=== PATIENT | male | born 1940 | race Two or more races ===

== ENCOUNTER 2024-04-16 16:49 | Inpatient (IN) | payer MEDICARE, MEDICAID, SELFPAY ==
[2024-04-16 16:50] VITALS: BMI 31.3
[2024-04-16 17:04] VITALS: BP 170/71; BP 173/68; PULSE 73; RESP 21; TEMP 37.7; O2SAT 93
[2024-04-16 17:06] VITALS: BMI 29.1
--- NOTE | 2024-04-16 17:12 | PD.EDRME ---
Rapid Medical Screening Exam E Arrival date/time: 04/16/24 16:49 83-year-old male with past medical history of hypertension, hyperlipidemia, BPH, and UTI presents emergency department complaining of painful urination that started this morning. Chief Complaint: Urogenital-Male Time Seen by Provider: 04/16/24 17:03 Vital signs: Vital Signs Temperature 99.8 F 04/16/24 17:04 Pulse Rate 73 04/16/24 17:04 Respiratory Rate 21 H 04/16/24 17:04 Blood Pressure 173/68 H 04/16/24 17:04 Pulse Oximetry (%) 93 L 04/16/24 17:04 Oxygen Delivery Method Room Air 04/16/24 17:04
--- NOTE | 2024-04-16 17:22 | XR_ITS ---
Examination: PA lateral chest 2 views TECHNIQUE: Upright PA lateral chest 2 views Exam date and time: April 16, 2024 1726 hours Comparison July 24, 2017 INDICATIONS: Onset SOB today FINDINGS: Opacity left base consistent with pneumonia or scar formation, obscuring detail left hemidiaphragm Right lung clear Normal heart size The osseous structures are intact IMPRESSION: Mild pneumonia versus scar formation left base, clinical correlation advised
[2024-04-16 17:32] LABS: Collection Type, Urine Clean Catch; Squamous Epithelial Cell,Urine 0 /hpf (0-5)
[2024-04-16 17:39] LABS: Basophils % (Auto) 0 % (0-2.5); Eosinophils % (Auto) 0 % (0-10); Hemoglobin 12.3 g/dL (13.5-16.0); Immature Granulocytes % (Auto) 1 % (0-0); Immature Granulocytes Auto 0.09 Thou/mm3 (0.00-0.00); Lymphocytes # (Auto) 0.7 Thou/mm3 (1.0-4.8); Lymphocytes % (Auto) 5 % (10-50); Mean Corpuscular HGB Conc 33.2 g/dl (31.0-37.0); Mean Corpuscular Hemoglobin 30.7 pg (25.0-35.0); Mean Corpuscular Volume 92 fL (80-100); Monocytes % (Auto) 8 % (0-12); Neutrophils # (Auto) 11.7 Thou/mm3 (1.8-7.7); Neutrophils % (Auto) 87 % (37-80); Nucleated Red Blood Cell % 0 /100 WBC (0); Platelet Count 203 Thou/mm3 (140-440); Red Blood Count 4.01 Miln/mm3 (4.50-5.90); White Blood Count 13.5 Thou/mm3 (3.8-10.6)
[2024-04-16 17:45] LABS: Bacteria,Urine 4+; Bilirubin,Urine Negative (Negative); Blood,Urine 3+ (Negative); Glucose, Urine Negative (Negative); Ketones,Urine Negative (Negative); Leukocyte Esterase,Urine Positive (Negative); Nitrite,Urine Positive (Negative); Protein,Urine 3+ (Neg - Trace); RBC,Urine 108 /hpf (0-3); Specific Gravity,Urine 1.018 (1.001-1.035); Urobilinogen,Urine Negative mg/dL (0.0-1.0); WBC,Urine 5771 /hpf (0-5)
[2024-04-16 17:46] LABS: Clarity,Urine Turbid (Clear/Hazy); Color,Urine Yellow (Lt Yel-Yel); Culture Indicated,Urine Yes
[2024-04-16 18:06] LABS: Alanine Aminotransferase 13 U/L (10-49); Albumin, Serum 4.2 gm/dL (3.4-4.8); Albumin/Globulin Ratio 1.6 (1.2-2.2); Alkaline Phosphatase 62 U/L (46-116); Anion Gap 6 (7-16); Aspartate Amino Transferase < 8 U/L (0-34); BUN/Creatinine Ratio 20 Ratio (12-20); Bilirubin,Total 0.7 mg/dL (0.3-1.2); Blood Urea Nitrogen 28 mg/dL (9-23); Calcium 9.2 mg/dL (8.3-10.6); Calcium (Corrected) 9.2 mg/dL (8.5-10.1); Carbon Dioxide 26.1 mMol/L (20.0-31.0); Chloride 104 mMol/L (98-107); Creatinine (Component) 1.4 mg/dL (0.6-1.3); Estimated Creatinine Clearance 40.1 mL/min (>60); Globulin 2.6 gm/dL (2.3-3.5); Glucose 110 mg/dL (74-106); Lipase 32 U/L (12-53); Osmolality,Calculated 278 (275-295); Potassium 3.8 mMol/L (3.4-5.1); Sodium 136 mMol/L (136-145); Total Protein 6.8 gm/dL (5.7-8.2); eGFR 49 See Note
[2024-04-16 19:23] VITALS: BP 192/70; BP 194/64; PULSE 66; RESP 19; TEMP 37.8; O2SAT 97
[2024-04-16 21:00] VITALS: BP 194/84; PULSE 62; RESP 18; TEMP 37; O2SAT 95
[2024-04-16] MEDS: cefTRIAXone/D5w 1gm IV premix 50 ML IV (21:00)
--- NOTE | 2024-04-16 21:06 | EKG_ITS ---
[facility] Test Date: 2024-04-16 Pat Name: MARCUS KRUEGER Department: Room: - Gender: Male Processing Engineer: : [id number] Requested By: Ernesto Medina Order Number: [id number] Reading MD: Ernesto Medina Measurements Intervals [place] Rate: 66 P: 60 ID: [id number] QRS: 39 QRSD: 114 T: 43 QT: 400 QTc: 420 Interpretive Statements SINUS RHYTHM WITH SINUS ARRHYTHMIA INCOMPLETE RIGHT BUNDLE BRANCH BLOCK [90+ ms QRS DURATION, TERMINAL R IN V1/V2, 40+ ms S IN I/aVL/V4/V5/V6] Compared to ECG 10/09/2021 08:28:21 Incomplete right bundle-branch block now present Sinus bradycardia no longer present First degree AV block no longer present Intraventricular conduction delay no longer present /store/S0/[id number]/ecg/[id number].pdf
--- NOTE | 2024-04-16 21:08 | EDNOTE_ITS ---
ED Male Genitalurinary RME/HPI General Chief complaint: Urogenital-Male Stated complaint: THINKS HAS UTI, HAVING CHILLS TODAY Time Seen by Provider: 04/16/24 17:03 Arrival date/time: 04/16/24 16:49 RME / HPI RME / HPI Narrative: 04/16/24 16:49 83-year-old male with past medical history of hypertension, hyperlipidemia, BPH, and UTI presents emergency department complaining of painful urination that started this morning. DR. MEDINA MAIN ED EVALUATION: 83 year old male presents to the Emergency Department accompanied by his son with complaint of dysuria onset 12 PM today. Pain is described as burning and r ated moderate in severity. Associated symptoms include a subjective fever and chills since 3 PM today. Per son, patient had similar symptoms x2 other times and was hospitalized for an UTI at [facility]. Patient denies any of the following: sweating, hematuria, abdominal pain, nausea, vomiting, diarrhea, cough, shortness of breath, chest pain, headache, dizziness, or any other symptoms at this time. PMHx: X2 UTI's in past, hospitalized. Hypertension on medications, complaint. Bilateral shoulders' surgeries and knee surgery. Denies diabetes history. Social Hx: No tobacco, alcohol, or substance use. PCP: [facility] Related Data Home Medications ?Medication ?Instructions ?Recorded ?Confirmed finasteride 1 mg tablet (Propecia) 5 mg PO QDAY #0 tabs 07/08/16 10/09/21 hydrochlorothiazide 25 mg tablet 25 mg PO BID #0 tabs 07/08/16 10/12/21 tamsulosin 0.4 mg capsule (Flomax) 0.4 mg PO QDAY ##0 07/08/16 10/09/21 losartan 100 mg tablet 100 mg PO QDAY 09/22/20 10/12/21 metoprolol tartrate 50 mg tablet 25 mg PO QDAY 09/22/20 10/12/21 amlodipine 10 mg tablet 10 mg PO QDAY 10/02/21 10/12/21 gabapentin 100 mg capsule 100 mg PO BID 10/02/21 10/09/21 bimatoprost 0.01 % eye drops 1 drp ophthalmic (eye) QDAY 10/09/21 10/09/21 (Lois) Previous Rx's ?Medication ?Instructions ?Recorded ciprofloxacin HCl 500 mg tablet 500 mg PO BID #14 tabs 10/12/21 (Cipro) hydrocodone 5 mg-acetaminophen 325 1 tab PO Q6H PRN pain #20 tabs 10/12/21 mg tablet Allergies Allergy/AdvReac Type Severity Reaction Status Date / Time No Known Allergies Allergy Verified 04/16/24 16:52 Review of Systems Review of Systems Systems Reviewed: All systems reviewed, normal except as documented Narrative Review of Systems: GEN: + subjective fever, + chills, no weight loss EYES: No discharge, no visual changes, no pain HEENT: No ear pain, no congestion, no sore throat PULM: No shortness of breath, no cough, no congestion CV: No chest pain, no dyspnea on exertion, no palpitations GI: No nausea, no vomiting, no diarrhea, no pain, no constipation : + dysuria MUSC/SKEL: No joint pain, no back pain SKIN: No rash PSYCH: No hallucinations, no depression HEME/LYMPH: No easy bleeding or bruising tendencies NEURO: No weakness, no headache Past Medical History Social History SMOKING STATUS: Never smoker SUBSTANCE USE: does not use ALCOHOL: Never Past Medical History Comments PMH COMMENT: X2 UTI's in past, hospitalized. Hypertension on medications, complaint. Bilateral shoulders' surgeries and knee surgery. Denies diabetes history. ED Exam Narrative Physical exam: GEN. APPEARANCE: Patient is alert awake oriented x3 under no acute distress, laying down comfortably at 30-45?; does not look ill/ toxic. Patient has good eye contact. Patient is cooperative. VITALS: All vitals were reviewed and the pulse ox is 97% on room air, which is normal according to my interpretation. HEENT: Normocephalic, atraumatic and nontender. Pupils are equal and reactive to light and accommodation. Oral mucosa are moist. NECK: Supple, nontender, no meningismus, no JVD. CHEST: Nontender on palpation, no deformity and no crepitus. CARDIOVASCULAR: Heart regular rhythm no murmur or gallop rub or extra beats; not tachycardic. LUNGS: Clear to auscultation bilaterally with symmetrical chest rise. No laboring tachypnea or wheezing. No intercostal subcostal retraction. No rales and no rhonchi. ABDOMEN: Soft, flat, with suprapubic and right lower tenderness on palpation, with guarding but no rebound tenderness. No McBurney tenderness. No left-sided tenderness. There are no abnormal masses palpated. No pulsatile masses or bruits. Active and normal bowel sounds. GENITALIA: Not examined. RECTAL EXAM: Not done. EXTREMITIES: Nontender. No edema. No cyanosis. Patient is able to move all 4 extremities well. SKIN: Warm and dry, no rashes noted. MUSCULOSKELETAL: No lumbar or midline bony tenderness. There is no CVA tenderness. No paraspinal muscle spasm or tenderness. NEURO: Cranial nerves II through XII grossly intact. There is no focalization. GCS is 15. PSYCHIATRIC: Patient is in normal mood and affect, cooperative. Course Course Course Narrative: 2100: Sepsis alert initiated. Orders made at this time are congruent with ED Adult Sepsis Order List. Re-evaluation is to be completed. 2099: Fluids started. 2134: Sepsis reassessment performed consisting of lab review, vitals, physical exam including auscultation of heart, lungs, and visual evaluation of capillary refills, mucosal membranes and extremities. Quality Measures Current suspected stage: sepsis Possible source: genitourinary Blood cultures ordered: yes Antibiotic ordered: Yes Pertinent labs: 04/16/24 21:20 Lactic Acid 0.8 mMol/L (0.4-2.0) Procalcitonin 0.13 ng/ml (0.0-0.49) sepsis and none Orders Category Date Time Status COVID-19 Screening Questionnaire NOW Care 04/16/24 22:45 Active Decision to Admit X1 Care 04/16/24 22:45 Active EKG (ED ONLY) *Do not use* NOW Care 04/16/24 21:06 Completed Insert IV NOW Care 04/16/24 20:58 Active EKG (ED Only) Stat Exams 04/16/24 21:06 Draft XR chest 2V Stat Exams 04/16/24 17:22 Completed B-Type Natriuretic Peptide Stat Lab 04/16/24 21:20 Completed Blood Culture (Lab) Stat Lab 04/16/24 21:25 Received CBC Stat Lab 04/16/24 17:31 Completed CMP [Comprehensive Metabolic Panel] Stat Lab 04/16/24 17:31 Completed Lactate (Lactic Acid) Stat Lab 04/16/24 21:20 Completed Lipase Stat Lab 04/16/24 17:31 Completed Procalcitonin Stat Lab 04/16/24 21:20 Completed Troponin I Stat Lab 04/16/24 21:20 Completed Urinalysis, C/S if Indicated Stat Lab 04/16/24 17:20 Completed Urine Culture Stat Lab 04/16/24 17:20 Received Piper/Tazo 3.375 gm [Zosyn] Med 04/16/24 21:17 Discontinued 3.375 gm in 50 ml IV X1 Sodium Chloride 0.9% 1000 ml [Ns] 1,000 ml Med 04/16/24 21:09 Discontinued IV 999 mls/hr cefTRIAXone/D5w 1gm IV premix [Rocephin/D5w 1gm IV Med 04/16/24 19:03 Discontinued premix] 50 ml IV X1 cloNIDine HCL [Catapres] Med 04/16/24 22:23 Discontinued 0.2 mg PO X1 ONE Vital Signs Vital signs: Vital Signs Temperature 99.8 F 04/16/24 17:04 Pulse Rate 73 04/16/24 17:04 Respiratory Rate 21 H 04/16/24 17:04 Blood Pressure 173/68 H 04/16/24 17:04 Pulse Oximetry (%) 93 L 04/16/24 17:04 Oxygen Delivery Method Room Air 04/16/24 17:04 Procedures -ED EKG Interpretation #1: Date of EK04/16/24 Rate: 66 Interpretation: Interpreted by me EKG Impression: Normal sinus rhythm, No ectopy, Normal intervals and Normal axis Additional EKG comment: Incomplete right bundle branch block. Urogenital - Male MDM Narrative MDM Narrative:: I, Danielle Mesa, am scribing for and in the presence of Dr. Medina. I picked up discharge at 9 PM and I called sepsis protocol patient and his initial vital signs which showed a temperature of 100.1 orally, respiratory rate of 21 and also a blood pressure of 192/70. Patient states that today at around 12 noon he started having hurting and burning on urination and also felt fever chills since 3 PM today. He was not sweating. He was urinating frequently and hurting and burning. He denies abdominal pain per se and no nausea vomiting or diarrhea. He denies any chest pain shortness of breath or coughing and he denies any headache or dizziness. He denies any leg swelling or any fall or injuries. He had a similar episode in April 2023 when he went to [facility] and he was admitted there for UTI. He denies any abdominal surgeries but he has had both shoulders and the right knee operated on. He denies diabetes but he does have hypertension. Looking at his old records, he was here on 11/07/2023 when his white count was 3.8 with a normal differential; today, his white count is 13.5 with 87 segs 0 bands and 5 lymphs H&H of 12 and 37. His BUN and creatinine are elevated at 28 and 1.4 but that is at his baseline. His urinalysis shows positive nitrates and 5700 WBCs and 4+ bacteria. The triage PA had given him ceftriaxone which does not cover very well for Pseudomonas. Therefore I gave him also Zosyn 3.375 g IV. I ordered lactic acid and procalcitonin and blood cultures. If his lactic acid and procalcitonin are negative, I will discharge him home; otherwise, I will admit him to the hospital. At 10:22 PM, his blood pressure is still high at 203/77 therefore I ordered clonidine 0.2 mg p.o. His lactic acid and procalcitonin came back negative. At 10:45 PM, I discussed this case with Dr. Mckinney, PGY 2, who will come and admit him to the hospital. Provider Notation: Although this document has been carefully reviewed, there may still be some phonetic and other typographical errors. These error are purely grammatical due to imperfections in the software program and should not be construed in any way to compromise the substance of the patient's medical care during this visit. Patient data External records reviewed:: [facility] previous records (Reviewed procedure note by Dr. Vera, dated 10/12/21.) Clinical information provided by:: patient and family (son) Social determinants that could affect healthcare access:: none Patient has the following chronic illnesses:: X2 UTI's in past, hospitalized. Hypertension on medications, complaint. Bilateral shoulders' surgeries and knee surgery. Denies diabetes history. How is presenting disease/condition affected by chronic disease/condition?: exacerbated by Evaluation data The following diagnostics were reviewed and interpreted by me:: lab results, radiology exam(s) and EKG tracing(s) Lab and/or radiology exams considered but not ordered:: none Interpretation Summary: See above under MDM narrative. RADIOLOGY: Procedure(s): XR chest 2V Accession Number(s): [id number] cc: David Castillo MD; Harmony Miller (PIANO TEACHER),Ayan LAMAR~ Examination: PA lateral chest 2 views TECHNIQUE: Upright PA lateral chest 2 views Exam date and time: April 16, 2024 1726 hours Comparison July 24, 2017 INDICATIONS: Onset SOB today FINDINGS: Opacity left base consistent with pneumonia or scar formation, obscuring detail left hemidiaphragm Right lung clear Normal heart size The osseous structures are intact IMPRESSION: Mild pneumonia versus scar formation left base, clinical correlation advised Dictated By: David Castillo MD Medications / Prescriptions Medications or Prescriptions considered but not ordered:: none Medication administrations:: Medication Administration History Discontinued Medications Clonidine (Clonidine Hcl 0.1 Mg Tablet) 0.2 mg PO X1 ONE Stop: 04/16/24 22:24 Last Admin: 04/16/24 22:31 Dose: 0.2 mg Documented By: LANE Ceftriaxone Sodium/Dextrose (Rocephin/D5w 1gm Iv Premix) 50 mls @ 100 mls/hr IV X1 ONE Stop: 04/16/24 19:32 Last Infusion: 04/16/24 21:33 Dose: Infused Documented By: Admin: 04/16/24 21:00 Dose: 100 mls/hr Documented By: BRENDAN Sodium Chloride (Ns) 1,000 mls @ 999 mls/hr IV .Q1H1M ONE Stop: 04/16/24 22:09 Last Infusion: 04/16/24 22:28 Dose: Infused Documented By: Admin: 04/16/24 21:26 Dose: 999 mls/hr Documented By: BRENDAN Piperacillin/Tazobactam/Dextrose (Zosyn) 3.375 gm in 50 mls @ 100 mls/hr IV X1 ONE Stop: 04/16/24 21:46 Last Infusion: 04/16/24 22:06 Dose: Infused Documented By: Admin: 04/16/24 21:26 Dose: 100 mls/hr Documented By: BRENDAN see above Consultations Consultation(s) initiated? (list below): Yes Diagnosis Urogenital Male Differential Diagnosis: urinary tract infection and other (pyelonephritis, appendicitis, diverticulitis) Most likely diagnosis given after review of the tests above:: as below Admission Indicated Admission indicated?: indicated Admission Request Was there a request for admission?: Yes Admission Attestation Admission request attestation: Discussed case with [] from Hospitalist service regarding admission. Discussed patients ED course, exam findings, labs, and radiology results. The Hospitalist [agrees,declines] to accept the patient for admission. Disposition Plan Disposition Plan: Admit Critical Care Time Critical Care Time Critical Care Time: Yes Total Critical Care Time (min.): 30 Attestation: The high probability of sudden, clinically significant deterioration in the patient?s condition required the highest level of my preparedness to intervene urgently. The services I provided to this patient were to treat and/or prevent clinically significant deterioration. Services included the following: chart data review, reviewing nursing notes and/or old charts, documentation time, field sales consultant collaboration regarding findings and treatment options, medication orders and management, direct patient care, vital sign assessments and ordering, interpreting and reviewing diagnostic studies and lab tests. Aggregate critical care time includes only time during which I was engaged in work directly related to the patient?s care, as described above, whether at bedside or elsewhere in the Emergency Department. It did not include time spent performing other reported procedures or the services of residents, students, nurses or physician assistants. Discharge Plan Plan Patient Disposition: Admit Acute Care w/in Hospital Prescriptions/Referrals Prescriptions/Med Rec: No Action tamsulosin [Flomax] 0.4 MG capsule,extended release 24hr 0.4 mg PO QDAY Qty: 0 hydrochlorothiazide 25 MG tablet 25 mg PO BID Qty: 0 finasteride [Propecia] 1 MG tablet 5 mg PO QDAY Qty: 0 amlodipine 10 mg Tablet 10 mg PO QDAY gabapentin 100 mg Capsule 100 mg PO BID metoprolol tartrate 50 mg Tablet 25 mg PO QDAY losartan 100 mg Tablet 100 mg PO QDAY Lumigan 0.01 % Drops 1 drp OPHTHALMIC (EYE) QDAY hydrocodone-acetaminophen 5-325 mg tablet 1 tab PO Q6H MDD 4 PRN (Reason: pain) Qty: 20 0RF ciprofloxacin HCl [Cipro] 500 mg tablet 500 mg PO BID Qty: 14 0RF Problem List Clinical Impression: Acute febrile illness, Sepsis secondary to UTI, Uncontrolled hypertension Patient/Caregiver Discharge Instructions Print Language: [place] Stand Alone Forms: Libby Award Info., Patient Portal Info Letter
[2024-04-16] MEDS: SODIUM CHLORIDE 0.9% 1000 ML 1,000 ML 999 ML IV ×2 (21:26→23:14)
[2024-04-16] MEDS: PIPER/TAZO 3.375 GM 3.375 GM/50 ML BAG IV (21:26)
[2024-04-16 21:34] LABS: Lactate (Lactic Acid) 0.8 mMol/L (0.4-2.0)
[2024-04-16 21:59] LABS: B-Type Natriuretic Peptide 249 pg/mL (0-100)
[2024-04-16 22:13] LABS: Procalcitonin 0.13 ng/ml (0.0-0.49); Troponin I 0.031 ng/mL (0.0-0.045)
[2024-04-16 22:20] VITALS: BP 203/77; PULSE 66; RESP 20; TEMP 36.7; O2SAT 91
[2024-04-16 22:31] VITALS: BP 203/77; PULSE 67
[2024-04-16] MEDS: cloNIDine HCL 0.1 MG TABLET 0.2 MG PO (22:31)
[2024-04-17] VITALS (20 sets, daily range): BP systolic 129–204; BP diastolic 52–85; PULSE 58–83; RESP 13–95; TEMP 36.2–37.7; O2SAT 91–99; BMI 28.7
--- NOTE | 2024-04-17 00:07 | ESHP_ITS ---
Documentation for date of: 04/16/24 HPI History of Present Illness History of present illness: 83-year-old male patient with significant medical history for BPH, hypertension and hyperlipidemia came into ED with daughter complaining of urinary urgency, dysuria and difficulty initiating urination. Symptoms started around this afternoon, symptoms accompanied with subjective fever and chills. Patient denied having abdominal pain, nausea, vomiting, diarrhea, SOB, chest pain/pressure, coughing or other associate symptoms. Patient states that he had similar symptoms in April of last year where he was admitted at [facility] for UTI. Patient follows up with urologist Dr. 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 In ED vitals were significant for BP 173/68, RR of 21, labs were significant for WBC 13.5, Hgb 12.3, MCV 92, BUN 28, [employer]K [employer] LEADER 1.4 (baseline 1.1), glucose 110, BNP 249, urinalysis indicative of pyuria with WBC 5771, RBC 108, bacteria 4+, leukocyte esterase positive and urine nitrite positive. Later on patient was found to be febrile, sepsis alert was initiated. Patient will be admitted for sepsis secondary to complicated UTI and JENNIFER. Medical Hx: BPH, hypertension, hyperlipidemia, history of urethral strictures and bladder neck contracture Medications (need reconciliation): Tamsulosin 0.4 mg, metoprolol tartrate 50 mg, memantine 5 mg, losartan 100 mg, HCTZ 25 mg, gabapentin 100 mg, finasteride 5 mg, atorvastatin 10 mg, amlodipine 10 mg Surgeries: Bilateral knee and shoulder surgeries Social Hx: Denies drinking alcohol, smoking cigarettes or using other illicit drugs Allergies: NKDA CODE STATUS: Full code Review of Systems Review of Systems Systems Reviewed: All systems reviewed, normal except as documented Exam Vital Signs Temp Pulse Resp BP Pulse Ox O2 Del Method 98.1 F 67 20 203/77 H 91 L Room Air 04/16/24 22:20 04/16/24 22:31 04/16/24 22:20 04/16/24 22:31 04/16/24 22:20 04/16/24 21:00 Narrative Exam Constitutional: well-developed, well-nourished, in no acute distress, lying in bed HEENT: NCAT, EOMI, reactive round pupils b/l, patent nares b/l, moist mucous membranes Lung: CTAB, no wheezing, no rhonchi Heart: Regular S1S2, no murmurs, gallops, or rubs Abdomen: Soft, non-distended, non-tender, bowel sounds present throughout Extremities: No cyanosis, clubbing, or edema, LE pulses present b/l : No suprapubic tenderness, no CVA tenderness on palpation Neurologic: No focal sensory or motor deficits noted, AOx3, appropriate affect Skin: Warm, dry, no lesions or rashes noted Results: Labs 04/16/24 17:31 04/16/24 17:31 Labs: Short CBC 04/16/24 Range/Units 17:31 WBC 13.5 H (3.8-10.6) Thou/mm3 Hgb 12.3 L (13.5-16.0) g/dL Hct 37.0 L (41.0-53.0) % Plt Count 203 (140-440) Thou/mm3 BMP 04/16/24 17:31 Sodium 136 Potassium 3.8 Chloride 104 Carbon Dioxide 26.1 BUN 28 H Creatinine 1.4 H Glucose 110 H Calcium 9.2 Cardiac Enzymes 04/16/24 Range/Units 21:20 Troponin I 0.031 (0.0-0.045) ng/mL Liver Function 04/16/24 Range/Units 17:31 Total Bilirubin 0.7 (0.3-1.2) mg/dL AST < 8 (0-34) U/L ALT 13 (10-49) U/L Alkaline Phosphatase 62 (46-116) U/L Albumin 4.2 (3.4-4.8) gm/dL Urine 04/16/24 Range/Units 17:20 Urine Color Yellow (Lt Yel-Yel) Urine Clarity Turbid A (Clear/Hazy) Urine pH 6.0 (5.0-7.0) Ur Specific [place] 1.018 (1.001-1.035) Urine Protein 3+ A (Neg - Trace) Urine Glucose (UA) Negative (Negative) Quality Measures Quality Measures sepsis Current suspected stage: sepsis Possible source: genitourinary Blood cultures ordered: yes Antibiotic ordered: Yes and none Advance care planning discussed with:: other Medications Home Medications and Allergies Home Medications ?Medication ?Instructions ?Recorded ?Confirmed ?Type finasteride 1 mg tablet (Propecia) 5 mg PO QDAY #0 tabs 07/08/16 10/09/21 History hydrochlorothiazide 25 mg tablet 25 mg PO BID #0 tabs 07/08/16 04/17/24 History tamsulosin 0.4 mg capsule (Flomax) 0.4 mg PO QDAY ##0 07/08/16 10/09/21 History losartan 100 mg tablet 100 mg PO QDAY 09/22/20 04/17/24 History metoprolol tartrate 50 mg tablet 50 mg PO QDAY 09/22/20 04/17/24 History amlodipine 10 mg tablet 10 mg PO QDAY 10/02/21 10/12/21 History gabapentin 100 mg capsule 100 mg PO BID 10/02/21 10/09/21 History bimatoprost 0.01 % eye drops 1 drp ophthalmic (eye) QDAY 10/09/21 10/09/21 History ([place]) atorvastatin 10 mg tablet 10 mg PO QDAY 04/17/24 04/17/24 History memantine 5 mg tablet 5 mg PO BID 04/17/24 04/17/24 History mirabegron 50 mg tablet,extended 50 mg PO QDAY 04/17/24 04/17/24 History release 24 hr (Myrbetriq) Allergies Allergy/AdvReac Type Severity Reaction Status Date / Time No Known Allergies Allergy Verified 04/16/24 16:52 Visit Medications Acetaminophen (Acetaminophen 325 Mg Tablet) 650 mg PO Q6H PRN PRN Reason: Fever >101.5 Stop: 05/16/24 23:58 Heparin Sodium (Porcine) (Heparin Sod Inj 5000 Unit/Ml Vial) 5,000 unit SC Q8HR MELINA Stop: 05/01/24 05:59 Piperacillin/Tazobactam/Dextrose (Zosyn) 3.375 gm in 50 mls @ 100 mls/hr IV Q8HR MELINA Stop: 04/24/24 00:05 Ondansetron HCl (Ondansetron Inj 2 Mg/Ml Inj 2 Ml) 4 mg IV Q6H PRN; Protocol PRN Reason: NAUSEA OR VOMITING Stop: 05/17/24 00:03 Pantoprazole Sodium (Pantoprazole 40 Mg Tablet) 40 mg PO QDAY MELINA Stop: 05/17/24 08:59 Discontinued Medications Clonidine (Clonidine Hcl 0.1 Mg Tablet) 0.2 mg PO X1 ONE Stop: 04/16/24 22:24 Last Admin: 04/16/24 22:31 Dose: 0.2 mg Ceftriaxone Sodium/Dextrose (Rocephin/D5w 1gm Iv Premix) 50 mls @ 100 mls/hr IV X1 ONE Stop: 04/16/24 19:32 Last Infusion: 04/16/24 21:33 Dose: Infused Sodium Chloride (Ns) 1,000 mls @ 999 mls/hr IV .Q1H1M ONE Stop: 04/16/24 22:09 Last Infusion: 04/16/24 22:28 Dose: Infused Piperacillin/Tazobactam/Dextrose (Zosyn) 3.375 gm in 50 mls @ 100 mls/hr IV X1 ONE Stop: 04/16/24 21:46 Last Infusion: 04/16/24 22:06 Dose: Infused Sodium Chloride (Ns) 1,000 mls @ 999 mls/hr IV .Q1H1M ONE Stop: 04/16/24 23:55 Last Admin: 04/16/24 23:14 Dose: 999 mls/hr Assessment & Plan Plan 83-year-old male patient with significant medical history for BPH, hypertension and hyperlipidemia came into ED with daughter complaining of urinary urgency, dysuria and difficulty initiating urination. Symptoms started around this afternoon, symptoms accompanied with subjective fever and chills. Urinalysis indicative of UTI. #Sepsis secondary to #Complicated UTI #BPH #History of urethral strictures and bladder neck contracture #History of UTI Patient with history of BPH and strictures, follows up urologist Dr. Vera On admission patient complaining of urgency, chills, subjective fever, dysuria CBC positive for leukocytosis and UA indicative of UTI Patient received 2 L of bolus IVF NS Plan: ? Patient received 2 L bolus IVF in ED ? Continue IV Zosyn ? Urine cultures ordered ? Acetaminophen for fevers greater than 100.3 F ?Follow-up CBC #Hypertensive urgency On admission patient with BP 173/68 which escalated to 203/77 Patient with multiple BP meds that need reconciliation Plan: ? Admit to med telemetry ? As needed labetalol 10 mg IV for SBP> 180 or DBP >100 ? Start amlodipine 10 mg in a.m. ? Restart home meds after reconciliation ? Withhold YESI/ARB in setting of JENNIFER ? Monitor BP #JENNIFER, multifactorial: Uncontrolled hypertension, sepsis, obstructive uropathy Patient with history of BPH and recurrent UTI On admission patient with BUN 28 and creatinine 1.4 (baseline 1.1) Plan: ? Treat underlying illnesses ? Restart home med Flomax ? Withhold ACEs/ARB's in setting of JENNIFER ? Renally dose medications ? Follow-up renal panel #Hyperlipidemia Plan: Restart home med atorvastatin 10 mg daily #Chronic normocytic anemia Plan: Consider iron panel studies and starting patient on iron supplements Health Maintenance Dispo: Patient admitted for sepsis secondary to complicated UTI requiring IV antibiotics Diet: Renal DVT/PPx: Heparin GI ppx: Protonix Lines: PIV Code Status: Full code Attending Provider Attestation/Addendum I reviewed labs, imaging, EKG, home medications and prior available records. Face to face evaluation was performed by me. I have personally examined the patient and discussed assessment and plan with the IM team. I reviewed the resident note and agree with the plan with exceptions as below. 83-year-old male with history of BPH, hyperlipidemia, hypertension and UTIs, who presented with a chief complaint of fevers and dysuria. He was found to have sepsis secondary to UTI and hypertensive urgency. Sepsis secondary to acute UTI: Started the patient on IV Zosyn. Continue IV fluids. Follow-up blood and urine cultures. Trend WBC. JENNIFER: Mild. Probably secondary to dehydration versus sepsis from UTI. Management as above. Continue IV hydration. Avoid nephrotoxins. Renally dosed medications. Hypertensive urgency: Ordered IV labetalol. Resume home medications. Monitor BP.
[2024-04-17] MEDS: LABETALOL INJ 5 MG/ML VIAL 20 ML 10 MG IVP (01:29)
[2024-04-17] MEDS: hydrALAZINE INJ 20 MG/ML VIAL 10 MG IV ×2 (02:58→04:42)
--- NOTE | 2024-04-17 04:20 | PC.NURSE ---
MD Acosta made aware that pts BP still elevated 181/71, HR 72, made new order and will carried out.
--- NOTE | 2024-04-17 04:33 | PC.NURSE ---
Pt instructed cant remember his home meds, asked for a family to bring his home meds for med rec.
[2024-04-17] MEDS: HEPARIN SOD INJ 5000 UNIT/ML VIAL SC ×3 (05:01→21:07)
[2024-04-17] MEDS: PIPER/TAZO 3.375 GM 3.375 GM/50 ML BAG IV (05:01)
[2024-04-17 05:44] LABS: Basophils % (Auto) 0 % (0-2.5); Eosinophils % (Auto) 0 % (0-10); Hematocrit 35.9 % (41.0-53.0); Hemoglobin 11.9 g/dL (13.5-16.0); Immature Granulocytes % (Auto) 1 % (0-0); Immature Granulocytes Auto 0.08 Thou/mm3 (0.00-0.00); Lymphocytes # (Auto) 0.8 Thou/mm3 (1.0-4.8); Lymphocytes % (Auto) 6 % (10-50); Mean Corpuscular HGB Conc 33.1 g/dl (31.0-37.0); Mean Corpuscular Hemoglobin 31.2 pg (25.0-35.0); Mean Corpuscular Volume 94 fL (80-100); Monocytes # (Auto) 1.4 Thou/mm3 (0.0-0.8); Monocytes % (Auto) 11 % (0-12); Neutrophils # (Auto) 11.2 Thou/mm3 (1.8-7.7); Neutrophils % (Auto) 83 % (37-80); Nucleated Red Blood Cell % 0 /100 WBC (0); Platelet Count 193 Thou/mm3 (140-440); RDW Standard Deviation 45.7 fL (35.1-43.9); Red Blood Count 3.82 Miln/mm3 (4.50-5.90); White Blood Count 13.5 Thou/mm3 (3.8-10.6)
[2024-04-17 06:30] LABS: Alanine Aminotransferase 10 U/L (10-49); Albumin, Serum 3.9 gm/dL (3.4-4.8); Albumin/Globulin Ratio 1.6 (1.2-2.2); Alkaline Phosphatase 55 U/L (46-116); Anion Gap 8 (7-16); Aspartate Amino Transferase 16 U/L (0-34); BUN/Creatinine Ratio 18 Ratio (12-20); Bilirubin,Total 0.7 mg/dL (0.3-1.2); Blood Urea Nitrogen 25 mg/dL (9-23); Calcium (Corrected) 9.1 mg/dL (8.5-10.1); Carbon Dioxide 24.3 mMol/L (20.0-31.0); Chloride 109 mMol/L (98-107); Creatinine (Component) 1.4 mg/dL (0.6-1.3); Estimated Creatinine Clearance 39.8 mL/min (>60); Globulin 2.4 gm/dL (2.3-3.5); Glucose 126 mg/dL (74-106); Osmolality,Calculated 287 (275-295); Phosphorous 1.8 mg/dL (2.4-5.1); Potassium 3.5 mMol/L (3.4-5.1); Sodium 141 mMol/L (136-145); Total Protein 6.3 gm/dL (5.7-8.2); eGFR 49 See Note
[2024-04-17] MEDS: TAMSULOSIN HCL 0.4 MG CAPSULE PO ×2 (08:56→21:00)
[2024-04-17] MEDS: PANTOPRAZOLE 40 MG TABLET PO (08:56)
[2024-04-17] MEDS: amLODIPine BESYLATE 5 MG TABLET 10 MG PO (08:56)
[2024-04-17] MEDS: METOPROLOL TARTRATE 25 MG TABLET 50 MG PO ×2 (09:15→21:07)
[2024-04-17] MEDS: MEMANTINE HCL 5 MG TABLET PO ×2 (09:15→20:59)
[2024-04-17] MEDS: POTASSIUM PHOS 22.5 MMOL in SODIUM CHLORIDE 0.9% 500 ML 500 ML 82.778 MMOL IV (09:18)
--- NOTE | 2024-04-17 09:50 | CHAP ---
Patient was sleeping. Prayed quietly near the bed.
[2024-04-17 10:04] LABS: Magnesium 1.9 mg/dL (1.6-2.6)
[2024-04-17] MEDS: FINASTERIDE 5 MG TABLET PO (12:14)
--- NOTE | 2024-04-17 13:37 | ESPR_ITS ---
<Statement entered by Geronimo Jimenez MD - 04/17/24 17:38> Patient was seen and examined at the bedside. Zosyn was discontinued and IV ceftriaxone was started. Bladder scan ordered to evaluate for urinary tension. Flomax was changed to 2 times a day and resumed finasteride and Myrbetriq patient's home medications. Electrolytes repleted. Pending blood and urine cultures. All labs and orders reviewed. I saw and examined the patient, and I agree with current management stated by medical student, Plan of care was discussed with the attending physician and resident physician. Disclaimer: Despite multiple revisions, due to the dictation software being used, the document bellow may not be free of grammatical errors including phonetic/typographic errors. However, this does not deter from our commitment to providing health care in the patient's best interest in mind. Dr. Deann MD, PGY 2 Documentation for date of: 04/17/24 Subjective Subjective Interval history: 04/17 - Patient has urine output of 500 mL earlier in the morning. Zosyn was discontinued and one more dose of Ceftriaxone was given. No hematuria, flank pain, or suprapubic tenderness. Patient denies being febrile. No nausea, vomitting, or diarrhea. Exam Vital Signs Temp Pulse Resp BP Pulse Ox O2 Del Method 99.8 F 66 18 161/64 H 99 Room Air 04/17/24 12:00 04/17/24 12:00 04/17/24 12:00 04/17/24 12:00 04/17/24 12:00 04/17/24 12:00 Constitutional Constitutional: no acute distress Routine HEENT Exam Head: Present normocephalic and atraumatic Eye: Present EOMI and PERRL Routine Respiratory Exam Respiratory: Present chest non-tender, lungs clear, normal breath sounds and no resp distress Routine Cardiovascular Exam Cardiovascular: Present RRR, S1 and S2 Routine Abdominal Exam Abdominal: Present soft; Absent tenderness or rebound Routine Skin Exam Skin: Present intact and warm Routine Psychiatric Exam Psychiatric: Present normal affect and normal thought process Objective Labs 04/18/24 05:39 04/18/24 05:39 Labs: Laboratory Results - last 24 hr 04/16/24 04/16/24 04/16/24 17:20 17:31 21:20 WBC 13.5 H RBC 4.01 L Hgb 12.3 L Hct 37.0 L MCV 92 MCH 30.7 MCHC 33.2 RDW Std Deviation 44.0 H Plt Count 203 Neut % (Auto) 87 H Lymph % (Auto) 5 L [place] % (Auto) 8 Eos % (Auto) 0 Baso % (Auto) 0 Neut # (Auto) 11.7 H Lymph # (Auto) 0.7 L [place] # (Auto) 1.0 H Eos # (Auto) 0.0 Baso # (Auto) 0.0 Immature Gran # (Auto) 0.09 H Absolute Nucleated RBC 0.00 Immature Gran % 1 H Nucleated RBC % 0 Sodium 136 Potassium 3.8 Chloride 104 Carbon Dioxide 26.1 Anion Gap 6 L BUN 28 H Creatinine 1.4 H Estim Creat Clear Calc 40.1 L eGFR 49 L BUN/Creatinine Ratio 20 Glucose 110 H Calculated Osmolality 278 Lactic Acid 0.8 Calcium 9.2 Corrected Calcium 9.2 Phosphorus Magnesium Total Bilirubin 0.7 AST < 8 ALT 13 Alkaline Phosphatase 62 Troponin I 0.031 B-Natriuretic Peptide 249 H Total Protein 6.8 Albumin 4.2 Globulin 2.6 Albumin/Globulin Ratio 1.6 Lipase 32 Procalcitonin 0.13 Ur Collection Type Clean Catch Urine Color Yellow Urine Clarity Turbid A Urine pH 6.0 Ur Specific [place] 1.018 Urine Protein 3+ A Urine Glucose (UA) Negative Urine Ketones Negative Urine Blood 3+ A Urine Nitrite Positive Urine Bilirubin Negative Urine Urobilinogen (Auto) Negative Ur Leukocyte Esterase Positive Urine RBC 108 H Urine WBC 5771 H Ur Squamous Epith Cells 0 Urine Bacteria 4+ A Ur Culture Indicated? Yes 04/17/24 04:47 WBC 13.5 H RBC 3.82 L Hgb 11.9 L Hct 35.9 L MCV 94 MCH 31.2 MCHC 33.1 RDW Std Deviation 45.7 H Plt Count 193 Neut % (Auto) 83 H Lymph % (Auto) 6 L [place] % (Auto) 11 Eos % (Auto) 0 Baso % (Auto) 0 Neut # (Auto) 11.2 H Lymph # (Auto) 0.8 L [place] # (Auto) 1.4 H Eos # (Auto) 0.0 Baso # (Auto) 0.0 Immature Gran # (Auto) 0.08 H Absolute Nucleated RBC 0.00 Immature Gran % 1 H Nucleated RBC % 0 Sodium 141 Potassium 3.5 Chloride 109 H Carbon Dioxide 24.3 Anion Gap 8 BUN 25 H Creatinine 1.4 H Estim Creat Clear Calc 39.8 L eGFR 49 L BUN/Creatinine Ratio 18 Glucose 126 H Calculated Osmolality 287 Lactic Acid Calcium 9.0 Corrected Calcium 9.1 Phosphorus 1.8 L Magnesium 1.9 Total Bilirubin 0.7 AST 16 ALT 10 Alkaline Phosphatase 55 Troponin I B-Natriuretic Peptide Total Protein 6.3 Albumin 3.9 Globulin 2.4 Albumin/Globulin Ratio 1.6 Lipase Procalcitonin Ur Collection Type Urine Color Urine Clarity Urine pH Ur Specific [place] Urine Protein Urine Glucose (UA) Urine Ketones Urine Blood Urine Nitrite Urine Bilirubin Urine Urobilinogen (Auto) Ur Leukocyte Esterase Urine RBC Urine WBC Ur Squamous Epith Cells Urine Bacteria Ur Culture Indicated? Quality Measures Quality Measures sepsis Current suspected stage: sepsis Possible source: genitourinary Blood cultures ordered: yes Antibiotic ordered: Yes and none Advance care planning discussed with:: patient Assessment & Plan Assessment Current Active Medications: Generic Name Dose Route Start Last Admin Trade Name Freq PRN Reason Stop Dose Admin Acetaminophen 650 mg 04/16/24 23:59 Acetaminophen 325 Mg Tablet PO 05/16/24 23:58 Q6H PRN Fever >101.5 Amlodipine Besylate 10 mg 04/17/24 09:00 04/17/24 08:56 Amlodipine Besylate 5 Mg Tablet PO 05/17/24 08:59 10 mg QDAY MELINA Administration Finasteride 5 mg 04/17/24 12:00 04/17/24 12:14 Finasteride 5 Mg Tablet PO 05/17/24 11:59 5 mg QDAY MELINA Administration Heparin Sodium (Porcine) 5,000 unit 04/17/24 06:00 04/17/24 05:01 Heparin Sod Inj 5000 Unit/Ml Vial SC 05/01/24 05:59 5,000 unit Q8HR MELINA Administration Hydralazine HCl 10 mg 04/17/24 09:04 Hydralazine Inj 20 Mg/Ml Vial IV 05/17/24 09:14 Q6H PRN HTN Potassium Phosphate 22.5 mmol/ 507.5 mls @ 82.778 mls/hr 04/17/24 09:01 04/17/24 09:18 Sodium Chloride IV 04/17/24 15:08 82.778 mls/hr X1 ONE Administration Ceftriaxone Sodium/Dextrose 50 mls @ 100 mls/hr 04/17/24 21:00 Rocephin/D5w 1gm Iv Premix IV 04/24/24 20:59 HS [facility] Memantine 5 mg 04/17/24 09:15 04/17/24 09:15 Memantine Hcl 5 Mg Tablet PO 05/17/24 09:14 5 mg BID MELINA Administration Metoprolol Succinate 50 mg 04/18/24 09:00 Metoprolol Succinate Xl 25 Mg Tabcr PO 05/18/24 08:59 QDAY MELINA Metoprolol Tartrate 50 mg 04/17/24 21:00 Metoprolol Tartrate 25 Mg Tablet PO 04/17/24 21:01 X1 ONE Home Medication- 50 mg 04/17/24 09:15 04/17/24 09:17 Please Speak With PO 05/17/24 09:14 Not Given Patient Caregiver To QDAY MELINA Have Rx Brought To [facility] Ondansetron HCl 4 mg 04/17/24 00:04 Ondansetron Inj 2 Mg/Ml Inj 2 Ml IV 05/17/24 00:03 Q6H PRN NAUSEA OR VOMITING Protocol Pantoprazole Sodium 40 mg 04/17/24 09:00 04/17/24 08:56 Pantoprazole 40 Mg Tablet PO 05/17/24 08:59 40 mg QDAY MELINA Administration Tamsulosin HCl 0.4 mg 04/17/24 21:00 Tamsulosin Hcl 0.4 Mg Capsule PO 05/17/24 20:59 BID MELINA Plan Plan 83-year-old male patient with significant medical history for BPH, hypertension and hyperlipidemia came into ED with daughter complaining of urinary urgency, dysuria and difficulty initiating urination. Symptoms started around this afternoon, symptoms accompanied with subjective fever and chills. Urinalysis indicative of UTI. #Sepsis secondary to #Complicated UTI #BPH #History of urethral strictures and bladder neck contracture #History of UTI Patient with history of BPH and strictures, follows up urologist Dr. Vera On admission patient complaining of urgency, chills, subjective fever, dysuria CBC positive for leukocytosis and UA indicative of UTI Patient received 2 L of bolus IVF NS Give one additional dose of Ceftriaxone later today and discontinue Zosyn for UTI. Plan: ? Patient received 2 L bolus IVF in ED ? Urine cultures ordered ? Acetaminophen for fevers greater than 100.3 F ?Follow-up CBC -Bladder Scan to assess the degree of post obstructive uropathy. -Continue with Ceftriaxone one dose today, one dose tomorrow. #Hypertensive urgency, Resolved / Improving On admission patient with BP 173/68 which escalated to 203/77 Patient with multiple BP meds that need reconciliation Plan: ? Admit to med telemetry ? As needed labetalol 10 mg IV for SBP> 180 or DBP >100 ? Start amlodipine 10 mg in a.m. ? Restart home meds after reconciliation ? Withhold YESI/ARB in setting of JENNIFER ? Monitor BP #JENNIFER, multifactorial: Uncontrolled hypertension, sepsis, obstructive uropathy Patient with history of BPH and recurrent UTI On admission patient with BUN 28 and creatinine still 1.4 (baseline 1.1) Plan: ? Treat underlying illnesses ? Restart home med Flomax ? Withhold ACEs/ARB's in setting of JENNIFER ? Renally dose medications ? Follow-up renal panel #Hyperlipidemia Plan: Restart home med atorvastatin 10 mg daily #Chronic normocytic anemia Plan: Consider iron panel studies and starting patient on iron supplements Health Maintenance Dispo: Patient admitted for sepsis secondary to complicated UTI requiring IV antibiotics Diet: Renal DVT/PPx: Heparin GI ppx: Protonix Lines: PIV Code Status: Full code Plan was discussed with attending, Dr. Rao, and my senior resident, Dr. Jimenez. Curt Workman [facility] Medical Student Attending Provider Attestation/Addendum Face to face evaluation was performed by me. I have personally seen and examined the patient. I discussed the assessment and plan with the entire medicine team. I reviewed available medical records, imaging studies, laboratory results. I agree with the above subjective data, objective findings, assessment and plan except as corrected by me or noted below Sepsis, poa without septic shock, due to below Acute complicated UTI - was started on broad spectrum Abxs zosyn, follow cultures
[2024-04-17] MEDS: cefTRIAXone/D5w 1gm IV premix 50 ML IV (20:59)
[2024-04-18] VITALS (7 sets, daily range): BP systolic 148–165; BP diastolic 63–84; PULSE 56–72; RESP 18–96; TEMP 36.3–36.8; O2SAT 93–94
[2024-04-18] MEDS: HEPARIN SOD INJ 5000 UNIT/ML VIAL SC (05:14)
[2024-04-18 06:05] LABS: Basophils % (Auto) 0 % (0-2.5); Eosinophils # (Auto) 0.1 Thou/mm3 (0.0-0.5); Eosinophils % (Auto) 1 % (0-10); Hemoglobin 11.2 g/dL (13.5-16.0); Immature Granulocytes % (Auto) 1 % (0-0); Immature Granulocytes Auto 0.07 Thou/mm3 (0.00-0.00); Lymphocytes % (Auto) 9 % (10-50); Mean Corpuscular HGB Conc 32.9 g/dl (31.0-37.0); Mean Corpuscular Hemoglobin 30.9 pg (25.0-35.0); Mean Corpuscular Volume 94 fL (80-100); Monocytes # (Auto) 1.1 Thou/mm3 (0.0-0.8); Monocytes % (Auto) 10 % (0-12); Neutrophils # (Auto) 8.8 Thou/mm3 (1.8-7.7); Neutrophils % (Auto) 80 % (37-80); Nucleated Red Blood Cell % 0 /100 WBC (0); Platelet Count 194 Thou/mm3 (140-440); RDW Standard Deviation 45.5 fL (35.1-43.9); Red Blood Count 3.62 Miln/mm3 (4.50-5.90); White Blood Count 11.1 Thou/mm3 (3.8-10.6)
[2024-04-18 06:20] LABS: INR 1.1 (0.9-1.3); Prothrombin Time 12.3 Seconds (9.0-12.2)
[2024-04-18 06:50] LABS: Alanine Aminotransferase 9 U/L (10-49); Albumin, Serum 3.3 gm/dL (3.4-4.8); Albumin/Globulin Ratio 1.2 (1.2-2.2); Alkaline Phosphatase 52 U/L (46-116); Anion Gap 8 (7-16); Aspartate Amino Transferase 12 U/L (0-34); BUN/Creatinine Ratio 21 Ratio (12-20); Bilirubin,Total 0.6 mg/dL (0.3-1.2); Blood Urea Nitrogen 27 mg/dL (9-23); Calcium 8.7 mg/dL (8.3-10.6); Calcium (Corrected) 9.3 mg/dL (8.5-10.1); Chloride 109 mMol/L (98-107); Creatinine (Component) 1.3 mg/dL (0.6-1.3); Estimated Creatinine Clearance 42.9 mL/min (>60); Globulin 2.7 gm/dL (2.3-3.5); Glucose 101 mg/dL (74-106); Magnesium 1.9 mg/dL (1.6-2.6); Osmolality,Calculated 284 (275-295); Phosphorous 2.7 mg/dL (2.4-5.1); Potassium 3.7 mMol/L (3.4-5.1); Sodium 140 mMol/L (136-145); eGFR 54 See Note
--- NOTE | 2024-04-18 09:15 | PC.SS ---
Late note 04/17/24: SS met with patient regarding his d/c plan. Pt is alert/oriented. Pt was admitted for Dysuria, Fever. Pt confirmed demographic and contact information is correct on facesheet. Pt resides with and son. Pt ambulates independently without assistance or DME. Pt is ok with all ADLs. Pt named his son, Meng Nelson medical decision maker if he is unable. SS provided verbal options for d/c to home or SNF. Patient?s choice is to return home upon d/c. Pt states not diabetic and is not on dialysis. Pt states he last followed up with PCP last week. D/C plan: Return home Next of Kin: Meng Nelson, son, phone# [phone] PCP: Dr. Ilda Roman from [facility] in [place] Address: Correct on facesheet
[2024-04-18] MEDS: amLODIPine BESYLATE 5 MG TABLET 10 MG PO (09:49)
[2024-04-18] MEDS: METOPROLOL SUCCINATE XL 25 MG TABCR 50 MG PO (09:49)
[2024-04-18] MEDS: TAMSULOSIN HCL 0.4 MG CAPSULE PO (09:49)
[2024-04-18] MEDS: FINASTERIDE 5 MG TABLET PO (09:49)
[2024-04-18] MEDS: MEMANTINE HCL 5 MG TABLET PO (09:49)
[2024-04-18] MEDS: PANTOPRAZOLE 40 MG TABLET PO (09:49)
--- NOTE | 2024-04-18 10:59 | CHAP ---
Patient sleeping. Prayed quietly in room.
--- NOTE | 2024-04-18 13:50 | ESDS_ITS ---
<Statement entered by Geronimo Jimenez MD - 04/18/24 15:36> I saw and examined the patient, and I agree with current management stated by Dr Workman, Medical student Plan of care was discussed with the attending physician and resident physician. Disclaimer: Despite multiple revisions, due to the dictation software being used, the document bellow may not be free of grammatical errors including phonetic/typographic errors. However, this does not deter from our commitment to providing health care in the patient's best interest in mind. Dr. Deann MD, PGY 2 Planned Discharge Date 04/18/24 DS: Providers Provider Date of admission: 04/16/24 23:54 Primary care physician: Physician No Primary/Family Admitting Provider: Gilberto Mooney MD Attending Provider on Admission: Francis Rao MD Attending Provider on DC: Francis Rao MD Discharging Provider: Francis Rao MD DS: Diagnosis Problem List Completed Was Problem List Reviewed/Reconciled?: Yes Hospital Course Hospital Course Hospital course: 83 year old male presents to the ED on the with a complaint of dysuria that began at 12 PM today which he described as burning and rated moderate as far as severity. He also had a subjective fever and chills since 3 PM on the . He was hospitalized for a UTI at [facility] last April and has had UTIs that required hospitalization five times in the past. ED course: First day of admission, there was a Sepsis alert at 21:01 and patient was given fluids. Genitourinary blood cultures were ordered . While in the ED, patient had an EKG (which showed incomplete RBBB), a XR Chest 2V, genitourinary blood cultures, a CBC, a CMP and a troponin. Patient was given 3.375 grams of Zosyn and one dose of Rocephin later that day and clonidine for a blood pressure in the 190s. Patient's white count at the time was 13.5 with 87 segs 0 bands and 5 lymphs H&H of 12 and 37.? His BUN and creatinine are elevated at 28 and 1.4 but that is at his baseline.? His urinalysis shows positive nitrates and 5700 WBCs and 4+ bacteria. ED doctor ordered lactic acid and procalcitonin as well and the patient was admitted by Dr. Mckinney. The next day, patient has urine output of 500 mL earlier in the morning. Zosyn was discontinued and one more dose of Ceftriaxone was given. No hematuria, flank pain, or suprapubic tenderness. Patient denies being febrile. No nausea, vomitting, or diarrhea. Patient's urine culture from 04/16 grew ESBL and patient was given one more dose of Zosyn and patient's procal and lactic acid were normal as well as normal urination, so patient was determined to be good for discharge on an oral antibiotic regimen of 500 mg Augmentin for 6 more days. Out patient follow up with primary care in one week. Finish 6 days of 500 mg Augmentin 2x a day. Follow up with urologist post-op for surgical complications. Return to ER or call 911 if symptoms worsen or start again. #Sepsis secondary to #Complicated UTI #BPH #History of urethral strictures and bladder neck contracture #History of UTI #Hypertensive urgency #JENNIFER, multifactorial: Uncontrolled hypertension, sepsis, obstructive uropathy #Hyperlipidemia #Chronic normocytic anemia Attestation: Attending, Dr. Rao, and my senior resident, Dr. Jimenez, were talked with and informed of the plan of care and discharge summary. Curt Workman OMS-4 Medical Student Status at Discharge Cognitive/behavioral status at discharge: Northern Irish Speaking and understood the need for IV and oral antibiotics Time Spent with Patient Time attestation: Total time spent providing and/or coordinating discharge services: 15 minutes Time spent: Greater than 30 minutes Exam Vital Signs Temp Pulse Resp BP Pulse Ox O2 Del Method 97.4 F 72 18 148/76 H 93 L Room Air 04/18/24 11:43 04/18/24 11:43 04/18/24 11:43 04/18/24 11:43 04/18/24 11:43 04/18/24 11:43 Constitutional Constitutional: no acute distress and cooperative Routine HEENT Exam Head: Present normocephalic and atraumatic Eye: Present EOMI ENT: Present mucous membranes moist Routine Neck Exam Neck: Present supple and full ROM Routine Respiratory Exam Respiratory: Present chest non-tender, lungs clear and normal breath sounds Routine Cardiovascular Exam Cardiovascular: Present RRR, S1 and S2 Routine Abdominal Exam Abdominal: Present soft and normoactive bowel sounds Routine Skin Exam Skin: Present intact, pallor and warm Routine Psychiatric Exam Psychiatric: Present normal affect, normal thought process and cooperative Discharge Plan Plan Patient Disposition: HOME (Self Care) Patient condition on transfer: Stable Care Plan Goals: Take augmention 500 mg two times a day for 6 more days to complete antibiotic course Continue all home meds as prescribed Follow up with PCP as outpt within a week In case of emergency call 911 or come back to ED Prescriptions/Referrals Prescriptions/Med Rec: New amoxicillin-pot clavulanate 500-125 mg tablet 1 tab PO BID 6 Days Qty: 12 0RF tamsulosin 0.4 mg Capsule 0.4 mg PO BID Qty: 30 0RF Continued hydrochlorothiazide 25 MG tablet 25 mg PO BID Qty: 0 finasteride [Propecia] 1 MG tablet 5 mg PO QDAY Qty: 0 amlodipine 10 mg Tablet 10 mg PO QDAY gabapentin 100 mg Capsule 100 mg PO BID metoprolol tartrate 50 mg Tablet 50 mg PO QDAY losartan 100 mg Tablet 100 mg PO QDAY Lumigan 0.01 % Drops 1 drp OPHTHALMIC (EYE) QDAY hydrocodone-acetaminophen 5-325 mg tablet 1 tab PO Q6H MDD 4 PRN (Reason: pain) Qty: 20 0RF atorvastatin 10 mg tablet 10 mg PO QDAY Patient Comments: TOME 1 TABLETA POR V A ORAL TODOS LOS D FOR CHOLESTEROL memantine 5 mg tablet 5 mg PO BID Patient Comments: TOME 1 TABLETA POR V A ORAL DOS VECES AL D A mirabegron [Myrbetriq] 50 mg tablet extended release 24 hr 50 mg PO QDAY Patient Comments: TOME 1 TABLETA POR V A ORAL TODOS LOS D Discontinued tamsulosin [Flomax] 0.4 MG capsule,extended release 24hr 0.4 mg PO QDAY Qty: 0 ciprofloxacin HCl [Cipro] 500 mg tablet 500 mg PO BID Qty: 14 0RF Referrals: No Primary/Family,Physician [Primary Care Provider] - Patient/Caregiver Discharge Instructions Meds to Beds: No Discharge Activity: activity as tolerated Education Materials: Dysuria, ED Dysuria, Uncertain Cause (Adult) Print Language: Northern Irish Stand Alone Forms: Libby Award Info., Patient Portal Info Letter Discharge Order Discharge Orders: Discharge (Routine); Ordered 04/18/24 Ordered By: Geronimo Jimenez Quality Discharge Quality Measures VTE prophylaxis Attestestation Attestation Face to face evaluation was performed by me. I have personally seen and examined the patient. I discussed the assessment and plan with the entire medicine team. I reviewed available medical records, imaging studies, laboratory results. I agree with the above subjective data, objective findings, assessment and plan except as corrected by me or noted below Sepsis, poa without septic shock, due to below Acute complicated UTI Urine cxs with ESBL sensitivie to augmentin, also bactrim. due to renal failure would avoid bactrim in his case, not septic anymore, PCP and Urology follow up needed after discharge
== END 2024-04-18 15:10 | disposition home or self-care (01) | DRG 872 ==
LOC: SERX 04-17 00:44 → SERHOLD 04-17 00:46 → S3SX 04-17 04:04
PROVIDERS: Internal Medicine; Student in an Organized Health Care Education/Training Program; Admitting Provider Student in an Organized Health Care Education/Training Program; Emergency Provider Emergency Medicine; Visit Provider Internal Medicine
DX: A41.51 Sepsis due to Escherichia coli [E. coli] (principal); N17.9 Acute kidney failure, unspecified; N39.0 Urinary tract infection, site not specified; N13.8 Other obstructive and reflux uropathy; Z16.12 Extended spectrum beta lactamase (ESBL) resistance; I16.0 Hypertensive urgency; N40.1 Benign prostatic hyperplasia with lower urinary tract symptoms; I10 Essential (primary) hypertension; E78.5 Hyperlipidemia, unspecified; D64.9 Anemia, unspecified; I45.10 Unspecified right bundle-branch block; Z87.440 Personal history of urinary (tract) infections; Z79.899 Other long term (current) drug therapy
CPT/HCPCS: 36415; 71046; 80053; 81001; 83605; 83690; 83735; 83880; 84100; 84145; 84484; 85025; 85610; 87040; 87077; 87086; 87186; 87811; 93005; 93225; 96361; 96365; 96367; 96375; 99291; J0360; J0696; J1643; J2543; J3490; J7030; J7040; A9270; J1644; J1920

== ENCOUNTER 2024-05-28 12:44 | Emergency (ER) | payer MEDICARE, MEDICAID, SELFPAY ==
[2024-05-28 12:46] VITALS: PULSE 52; RESP 18; BMI 27.6
--- NOTE | 2024-05-28 12:49 | EKG_ITS ---
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1940 Requested By: Naif Wood Order Number: [id number] Reading MD: Naif Wood Measurements Intervals [place] Rate: 46 P: 67 [place]: 196 QRS: 13 QRSD: 116 T: 42 QT: 463 QTc: 407 Interpretive Statements SINUS BRADYCARDIA MODERATE INTRAVENTRICULAR CONDUCTION DELAY [110+ ms QRS DURATION] VOLTAGE CRITERIA FOR LVH [MEETS CRITERIA IN ONE OF: R(aVL), S(V1), R(V5), R(V5/V6)+S(V1)] Compared to ECG 04/16/2024 22:02:27 Intraventricular conduction delay now present Left ventricular hypertrophy now present Sinus rhythm no longer present Sinus arrhythmia no longer present Incomplete right bundle-branch block no longer present /store/S0/[id number]/ecg/[id number].pdf
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
[2024-05-28 12:53] VITALS: BP 205/70; PULSE 51; RESP 16; O2SAT 96
[2024-05-28 12:57] VITALS: TEMP 36.6
[2024-05-28 13:20] LABS: Collection Type, Urine Clean Catch
[2024-05-28 13:29] LABS: Basophils % (Auto) 1 % (0-2.5); Eosinophils # (Auto) 0.2 Thou/mm3 (0.0-0.5); Eosinophils % (Auto) 4 % (0-10); Hematocrit 38.1 % (41.0-53.0); Hemoglobin 12.6 g/dL (13.5-16.0); Immature Granulocytes % (Auto) 0 % (0-0); Immature Granulocytes Auto 0.01 Thou/mm3 (0.00-0.00); Lymphocytes # (Auto) 1.7 Thou/mm3 (1.0-4.8); Lymphocytes % (Auto) 36 % (10-50); Mean Corpuscular HGB Conc 33.1 g/dl (31.0-37.0); Mean Corpuscular Hemoglobin 30.7 pg (25.0-35.0); Mean Corpuscular Volume 93 fL (80-100); Monocytes # (Auto) 0.5 Thou/mm3 (0.0-0.8); Monocytes % (Auto) 9 % (0-12); Neutrophils # (Auto) 2.4 Thou/mm3 (1.8-7.7); Neutrophils % (Auto) 49 % (37-80); Nucleated Red Blood Cell % 0 /100 WBC (0); Platelet Count 212 Thou/mm3 (140-440); Red Blood Count 4.11 Miln/mm3 (4.50-5.90); White Blood Count 4.8 Thou/mm3 (3.8-10.6)
[2024-05-28 13:41] LABS: Bilirubin,Urine Negative (Negative); Blood,Urine Negative (Negative); Clarity,Urine Clear (Clear/Hazy); Color,Urine Lt-Yellow (Lt Yel-Yel); Glucose, Urine Negative (Negative); Hyaline Casts,Urine < 1 /hpf (0-1); Ketones,Urine Negative (Negative); Leukocyte Esterase,Urine Negative (Negative); Nitrite,Urine Negative (Negative); PH,Urine 6.5 (5.0-7.0); Protein,Urine 1+ (Neg - Trace); RBC,Urine 2 /hpf (0-3); Specific Gravity,Urine 1.015 (1.001-1.035); Squamous Epithelial Cell,Urine 2 /hpf (0-5); Urobilinogen,Urine Negative mg/dL (0.0-1.0); WBC,Urine 2 /hpf (0-5)
[2024-05-28 13:45] LABS: Alanine Aminotransferase 24 U/L (10-49); Albumin, Serum 4.3 gm/dL (3.4-4.8); Albumin/Globulin Ratio 1.9 (1.2-2.2); Alkaline Phosphatase 72 U/L (46-116); Anion Gap 10 (7-16); Aspartate Amino Transferase 21 U/L (0-34); BUN/Creatinine Ratio 26 Ratio (12-20); Bilirubin,Total 0.4 mg/dL (0.3-1.2); Blood Urea Nitrogen 41 mg/dL (9-23); Calcium 9.2 mg/dL (8.3-10.6); Calcium (Corrected) 9.2 mg/dL (8.5-10.1); Carbon Dioxide 26.4 mMol/L (20.0-31.0); Chloride 101 mMol/L (98-107); Creatinine (Component) 1.6 mg/dL (0.6-1.3); Estimated Creatinine Clearance 34.2 mL/min (>60); Globulin 2.3 gm/dL (2.3-3.5); Glucose 124 mg/dL (74-106); LDH (Lactate Dehydrogenase) 174 U/L (120-246); Magnesium 2.1 mg/dL (1.6-2.6); Osmolality,Calculated 284 (275-295); Partial Thromboplastin Time 22.9 Seconds (22.0-36.0); Potassium 4.2 mMol/L (3.4-5.1); Prothrombin Time 11.3 Seconds (9.0-12.2); Sodium 137 mMol/L (136-145); Total Protein 6.6 gm/dL (5.7-8.2); Troponin I < 0.020 ng/mL (0.0-0.045); eGFR 42 See Note
[2024-05-28 13:59] VITALS: BP 195/70; PULSE 54
[2024-05-28] MEDS: cloNIDine HCL 0.1 MG TABLET PO (13:59)
[2024-05-28 14:01] LABS: Amphetamine/Methamp Scrn,U Negative (Negative); Barbiturate Screen,Urine Negative (Negative); Benzodiazepines Screen,Urine Negative (Negative); Benzoylecgonine Screen, Ur Negative (Negative); Fentanyl Screen,Urine Negative (Negative); Opiate Screen,Urine Positive (Negative); THC Screen,Urine Negative (Negative)
[2024-05-28 14:26] LABS: B-Type Natriuretic Peptide < 20 pg/mL (0-100)
[2024-05-28] MEDS: SODIUM CHLORIDE 0.9% 1000 ML 1,000 ML 999 ML IV (14:29)
[2024-05-28 16:14] VITALS: BP 169/72; PULSE 78; RESP 16; TEMP 36.6; O2SAT 99
== END 2024-05-28 16:16 | disposition home or self-care (01) ==
PROVIDERS: Registered Nurse General Practice; Emergency Provider Emergency Medicine
DX: I10 Essential (primary) hypertension (principal); N28.9 Disorder of kidney and ureter, unspecified; R55 Syncope and collapse; R00.1 Bradycardia, unspecified; I45.89 Other specified conduction disorders; E78.00 Pure hypercholesterolemia, unspecified
CPT/HCPCS: 36415; 80053; 80307; 81001; 83615; 83735; 83880; 84484; 85025; 85610; 85730; 93005; 96360; 96361; 99284; J7030; A9270

== ENCOUNTER 2024-06-28 08:05 | Day surgery (SDC) | payer MEDICARE, MEDICAID, SELFPAY ==
[2024-06-26 08:17] VITALS: BMI 27.1
[2024-06-26 09:19] LABS: Basophils # (Auto) 0.1 Thou/mm3 (0.0-0.2); Basophils % (Auto) 1 % (0-2.5); Eosinophils # (Auto) 0.4 Thou/mm3 (0.0-0.5); Eosinophils % (Auto) 7 % (0-10); Hematocrit 37.6 % (41.0-53.0); Hemoglobin 12.7 g/dL (13.5-16.0); Immature Granulocytes % (Auto) 0 % (0-0); Immature Granulocytes Auto 0.01 Thou/mm3 (0.00-0.00); Lymphocytes # (Auto) 1.8 Thou/mm3 (1.0-4.8); Lymphocytes % (Auto) 33 % (10-50); Mean Corpuscular HGB Conc 33.8 g/dl (31.0-37.0); Mean Corpuscular Volume 92 fL (80-100); Monocytes # (Auto) 0.5 Thou/mm3 (0.0-0.8); Monocytes % (Auto) 9 % (0-12); Neutrophils # (Auto) 2.7 Thou/mm3 (1.8-7.7); Neutrophils % (Auto) 50 % (37-80); Nucleated Red Blood Cell % 0 /100 WBC (0); Platelet Count 229 Thou/mm3 (140-440); RDW Standard Deviation 42.8 fL (35.1-43.9); White Blood Count 5.5 Thou/mm3 (3.8-10.6)
[2024-06-26 09:30] LABS: Alanine Aminotransferase 29 U/L (10-49); Albumin, Serum 4.5 gm/dL (3.4-4.8); Albumin/Globulin Ratio 1.7 (1.2-2.2); Alkaline Phosphatase 72 U/L (46-116); Anion Gap 7 (7-16); Aspartate Amino Transferase 20 U/L (0-34); BUN/Creatinine Ratio 24 Ratio (12-20); Bilirubin,Total 0.4 mg/dL (0.3-1.2); Blood Urea Nitrogen 31 mg/dL (9-23); Calcium 10.3 mg/dL (8.3-10.6); Calcium (Corrected) 10.3 mg/dL (8.5-10.1); Carbon Dioxide 26.6 mMol/L (20.0-31.0); Chloride 109 mMol/L (98-107); Creatinine (Component) 1.3 mg/dL (0.6-1.3); Estimated Creatinine Clearance 38.8 mL/min (>60); Globulin 2.6 gm/dL (2.3-3.5); Glucose 93 mg/dL (74-106); Osmolality,Calculated 291 (275-295); Potassium 4.4 mMol/L (3.4-5.1); Sodium 143 mMol/L (136-145); Total Protein 7.1 gm/dL (5.7-8.2); eGFR 54 See Note
--- NOTE | 2024-06-26 14:24 | SUR.PREOP ---
Cardiac records reviewed with Dr Meredith.
[2024-06-28] VITALS (8 sets, daily range): BP systolic 176–195; BP diastolic 69–86; PULSE 58–67; RESP 12–18; TEMP 36.2–36.7; O2SAT 97–100; BMI 26.3
[2024-06-28] MEDS: RINGERS LACTATED 1000 ML 1,000 ML 20 ML IV (09:01)
--- NOTE | 2024-06-28 10:43 | SUR.PHASEI ---
pt arrived to PACU with oral airway present, breathing unlabored, dressing to right inguinal region clean, dry, and intact, anesthesia aware of BP, report from Baljinder JIMENEZ and Dr Marquez
--- NOTE | 2024-06-28 10:47 | PD.SUROPNT ---
Date of Procedure 06/28/24 Pre Op Diagnosis Right inguinal hernia Post Op Diagnosis Indirect right inguinal hernia Procedure Right inguinal hernia repair with mesh Findings Patient was found to have indirect right inguinal hernia Procedure Description Patient brought into the operating room in supine position. After administration of general endotracheal anesthesia, patient's right groin was shaved, prepped and draped in standard surgical manner. The right inguinal crease was anesthetized with half percent Marcaine. An approximately 6 cm incision was made and dissection was carried to subcutaneous tissue. The Rangel's fascia was divided and the external oblique aponeurosis was opened towards the external ring. The hernia sac and the spermatic cord structures were from the posterior aspect of the external oblique aponeurosis at the level of pubic tubercle. The hernia sac was then meticulously dissected off the spermatic cord structures at the level of internal ring. Patient was noted to have indirect right inguinal hernia sac. The hernia sac was then ligated at the level of internal ring. The floor of inguinal canal was then reconstructed with ultra Pro proceed mesh. The mesh was secured with running 2-0 Prolene suture. The mesh secured medially to the pubic tubercle, superiorly into the conjoin tendon, inferiorly and to the shelving edge of inguinal ligament, the mesh was placed around the cord structures and tacked under the external oblique aponeurosis laterally. The area was copiously and thoroughly washed and irrigated, all the fluids were suctioned and the suction fluid returned clear. Hemostasis was adequate and satisfactory. External oblique aponeurosis was closed with running 2-0 Vicryl suture, and Rangel's fascia was closed with interrupted suture using 3-0 Vicryl. The incision was closed with 4-0 Monocryl in subcutaneous fashion. Instruments, needles and sponge counts were reported to be correct ?2. Patient tolerated the procedure well. He was extubated, breathing spontaneously and without difficulty and was transferred to postanesthesia care in stable condition. Anesthesia GETA and local Pathology / specimen Other (Hernia sac) Estimated Blood Loss 10 Condition Stable Surgeon Radha De La Garza MD Surgical Staff Operation Date: 06/28/24 10:30 Case Staff Anesthesiologist: Cameron Marquez RN First Assistant: Ce Yang
[2024-06-28] MEDS: hydrALAZINE INJ 20 MG/ML VIAL 5 MG IV (10:58)
--- NOTE | 2024-06-28 12:00 | SUR.PHASEII ---
pt awake, alert, able to follow commands, breathing unlabored, dressing to right inguinal region, dry, and intact, pt able to dress self with minimal assistance, discharge instructions given using telephone parole hearing officer with daughter present, pt discharged via wheelchair with all belongings and copies of discharge paperwork.
== END 2024-06-28 12:00 | disposition home or self-care (01) ==
LOC: S2EX 12:47
PROVIDERS: Anesthesiology; PCP Physician Assistant; Referring Provider Surgery; Visit Provider Surgery
PROC: (CPT 49505; principal; 2024-06-28 10:15)
DX: K40.90 Unilateral inguinal hernia, without obstruction or gangrene, not specified as recurrent (principal)
CPT/HCPCS: 49505; 36415; 80053; 85025; A4217; A4649; C1781; J0360; J0690; J2704; J3010; J3490; J7120

== ENCOUNTER → 2024-10-31 | Outpatient (BNVA) | payer MEDICARE, MEDICAID, SELFPAY | END | disposition home or self-care (01) | PROVIDERS: Visit Provider Student in an Organized Health Care Education/Training Program | DX: R32 Unspecified urinary incontinence (principal); I10 Essential (primary) hypertension; E78.00 Pure hypercholesterolemia, unspecified | CPT/HCPCS: 99212; G0463 ==

== ENCOUNTER → 2024-11-21 | Outpatient (CLI) | payer MEDICARE, SELFPAY ==
--- NOTE | 2024-11-21 09:00 | XR_ITS ---
Examination: Abdomen sonogram, complete Date and time of exam: November 21, 2024 0828 hours INDICATIONS: History right upper abdominal pain months. Technique: Multiple real-time grayscale transabdominal sonographic images of the abdomen have been obtained. Findings: Multiple small gallstones Normal gallbladder wall Normal common bile duct 0.2 cm Pancreatic head 2.6 cm Aorta not enlarged Liver 12 cm lobular contour Normal hepatopedal portal venous flow Patent IVC Right kidney 11.6 cm cortex 1.7 cm Multiple benign cysts, the largest in the lower pole 5.4 cm Left kidney 10.4 cm cortex 1.4 cm Multiple cysts, the largest in the midpole 34 mm Moderate bilateral renal parenchymal scar formation Spleen 7.4 cm IMPRESSION: Cholelithiasis, negative for cholecystitis Suspect primary hepatocellular disease Moderate bilateral renal parenchymal scar formation
== END | disposition home or self-care (01) ==
DX: K80.20 Calculus of gallbladder without cholecystitis without obstruction (principal); N28.89 Other specified disorders of kidney and ureter
CPT/HCPCS: 76700

== ENCOUNTER → 2024-12-13 | Outpatient (BNVA) | payer MEDICARE, SELFPAY | END | disposition home or self-care (01) | PROVIDERS: Visit Provider Urology | DX: N40.1 Benign prostatic hyperplasia with lower urinary tract symptoms (principal); R39.12 Poor urinary stream; I10 Essential (primary) hypertension; E78.00 Pure hypercholesterolemia, unspecified | CPT/HCPCS: 51741; 51798 ==

== ENCOUNTER → 2025-01-21 | Outpatient (CLI) | payer MEDICARE, MEDICAID, SELFPAY ==
--- NOTE | 2025-01-21 15:33 | XR_ITS ---
Examination:Right hip AP, lateral, AP pelvis 3 views Technique: Hip AP lateral, AP pelvis, 3 views Exam date and time:January 13, 2025 1533 hours INDICATIONS: Right hip pain years. FINDINGS: Moderate bilateral hip osteoarthritis. No acute hip fracture Dystrophic ossification above and lateral to the right hip IMPRESSION: Moderate bilateral hip osteoarthritis.
== END | disposition home or self-care (01) ==
DX: M16.0 Bilateral primary osteoarthritis of hip (principal)
CPT/HCPCS: 73502

== ENCOUNTER → 2025-02-01 | Outpatient (CLI) | payer MEDICARE, MEDICAID, SELFPAY ==
--- NOTE | 2025-02-01 12:28 | XR_ITS ---
Examination: Knee bilateral, 6 views Technique: Knee AP, lateral, oblique each knee total 6 views Date and time of exam: February 11, 2025 1252 hours INDICATIONS: Bilateral knee pain beginning one year ago. FINDINGS: Bilateral mild to moderate tricompartment osteoarthritis No fractures or dislocations Bilateral small knee effusions Heavy meniscus calcification IMPRESSION: Bilateral mild to moderate tricompartment osteoarthritis
--- NOTE | 2025-02-01 12:28 | XR_ITS ---
Examination: Bilateral hips, AP pelvis, 5 views Technique: AP, lateral views both hips, AP pelvis, 5 views Exam date and time: February 11, 2025 1222 hours INDICATIONS: Bilateral hip pain beginning one year ago. FINDINGS: Significant osteopenia Bilateral moderate narrowing hip joints No hip fractures or hip dislocations Dystrophic ossification in the soft tissue lateral to the right acetabulum Bones of the pelvis intact IMPRESSION: Bilateral moderate narrowing hip joints
--- NOTE | 2025-02-01 12:28 | XR_ITS ---
Examination: Lumbar spine, 5 views Technique: Lumbar spine AP, lateral, coned lateral lower lumbar spine, bilateral obliques 5 views Exam date and time: February 11, 2025 1252 hours INDICATIONS: Low back pain beginning one year ago FINDINGS: Lumbar dextroscoliosis 8 degrees Advanced diffuse facet arthropathy Moderate to advanced diffuse lumbar degenerative disc disease Prominent lumbar spondylosis IMPRESSION: Diffuse moderate to advanced lumbar degenerative disc disease with significant spinal stenosis
== END | disposition home or self-care (01) ==
PROVIDERS: Referring Provider Internal Medicine Rheumatology; Visit Provider Internal Medicine Rheumatology
DX: M17.0 Bilateral primary osteoarthritis of knee (principal); M25.852 Other specified joint disorders, left hip; M25.851 Other specified joint disorders, right hip; M51.360 Other intervertebral disc degeneration, lumbar region with discogenic back pain only; M48.061 Spinal stenosis, lumbar region without neurogenic claudication
CPT/HCPCS: 72110; 73523; 73562

== ENCOUNTER → 2025-04-29 | Outpatient (CLI) | payer MEDICARE, MEDICAID, SELFPAY ==
--- NOTE | 2025-04-29 13:20 | XR_ITS ---
Examination: Bone densitometry Date and time of exam: April 29, 2025, 1424 hours INDICATIONS: 84-year-old male with diagnosis age-related osteoporosis Technique: Lumbar spine and hip total bone mineralization values of an calculated. Peak reference and age match control results have been displayed. Findings: Lumbar spine total bone mineralization is 1.352 gm/cm2. This is 2.4 standard deviations above peak reference. Hip total bone mineralization is 1.342 gm/cm2 This is 2.2 standard deviations above peak reference. Impression: There is normal mineralization based on lumbar spine measurements. There is normal mineralization based on hip measurements
== END | disposition home or self-care (01) ==
DX: M25.559 Pain in unspecified hip (principal)
CPT/HCPCS: 77080

== ENCOUNTER → 2025-05-13 | Outpatient (CLI) | payer MEDICARE, MEDICAID, SELFPAY ==
--- NOTE | 2025-05-13 08:10 | XR_ITS ---
Examination: Abdomen sonogram, complete Date and time of exam: May 13, 2025, 0845 hours INDICATIONS: Right upper abdominal pain beginning 2 days ago, history gallstones. Technique: Multiple real-time grayscale transabdominal sonographic images of the abdomen have been obtained. Findings: Multiple gallstones Gallbladder wall 0.2 cm Common bile duct 0.2 cm Pancreatic head 2.5 cm Aorta not enlarged Liver 12 cm fatty infiltration irregular contour Normal hepatopetal portal venous flow Patent IVC Right kidney 9.8 cm multiple cysts, the largest 5.4 cm Left kidney 9.6 cm renal cortex 1.3 cm Mild hydronephrosis Multiple cysts, the largest 4.5 cm Spleen 7.7 cm IMPRESSION: Cholelithiasis, negative for cholecystitis Normal common bile duct Liver irregular in contour Mild left hydronephrosis
== END | disposition home or self-care (01) ==
DX: K80.20 Calculus of gallbladder without cholecystitis without obstruction (principal); N13.30 Unspecified hydronephrosis; K76.9 Liver disease, unspecified
CPT/HCPCS: 76700; 87077; 87086; 87186